=== PATIENT | male | born 1955 | race Caucasian/White ===

== ENCOUNTER 2019-02-13 08:54 | Emergency (ER) | payer OTHER ==
[~2019-02-13] VITALS: Ht 172.7 cm; Wt 88.5 kg
[2019-02-13 09:36] VITALS: BP 178/80
== END 2019-02-13 10:50 | disposition home or self-care (01) ==
LOC: ER 08:54
DX: M79.672 Pain in left foot (principal); I10 Essential (primary) hypertension; E11.9 Type 2 diabetes mellitus without complications; E78.5 Hyperlipidemia, unspecified; Z87.891 Personal history of nicotine dependence; Z88.0 Allergy status to penicillin; Z96.652 Presence of left artificial knee joint